=== PATIENT | female | born 1965 | race Caucasian/White ===

== ENCOUNTER 2020-05-23 21:43 | Emergency (ER) | payer OTHER ==
[~2020-05-23] VITALS: Ht 160 cm; Wt 63.5 kg
--- NOTE | 2020-05-23 21:44 | NUR ---
PT HAMLET ALS. TAKEN TO BED 12
[2020-05-23 21:45] VITALS: BP 169/92
--- NOTE | 2020-05-23 21:45 | NUR ---
54 YO F BIBA FROM HOME FOR C/C OF HTN AND 610 KYLE X1 HOUR. PT ARRIVED TO ED WITH 171/84 BP, 82 HR. PT WAS RECENTLY SWITCHED FROM METOPROLOL TO LISINOPRIL 1 MONTH AGO. PT STATES SHE TOOK HER LISINOPRIL AT 2030 AND 1 HOUR LATER HER BP ELEVATED. PT DENIES ANY CHNAGES IN HER VISION BUT STATES SHE FELT NUMBESS IN R ARM EARLIER TODAY THAT HAS SUBSIDED. PT DENIES TAKING ANY OTC MEDS FOR PAIN TODAY. 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 3MM PERRLA. 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 BED LOCKED AND IN LOWEST POSITION. SIDE RAILS X1. MED HX: HTN RX: LISINOPRIL NKA
[2020-05-23] MEDS ORDERED: LORazepam 2 MG/ML VIAL IM ONE (22:30)
--- NOTE | 2020-05-23 22:49 | NUR ---
SPOKE TO PTS SON IN LOBBY TO EXPLAIN PLAN OF CARE AND DISCHARGE TEACHING INSTRUCTIONS. SON WILL BE DRIVING THE PT HOME.
[2020-05-23 22:57] VITALS: BP 146/81
--- NOTE | 2020-05-23 22:57 | NUR ---
Patient discharged with v/s stable. Written and verbal after care instructions given and explained. Patient verbalized understanding. Ambulatory with to car. All questions addressed prior to discharge. Advised to follow up with PMD.
== END 2020-05-23 22:57 | disposition home or self-care (01) ==
LOC: MED 21:43
DX: I10 Essential (primary) hypertension (principal)
CPT/HCPCS: 96372; 99283; J2060